=== PATIENT | female | born 2000 | race Caucasian/White ===

== ENCOUNTER 2021-04-23 09:53 | Outpatient (CLI) | payer OTHER, SELFPAY ==
[2021-04-23 12:32] LABS: T3 Total - Triiodothyronine 1.51 ng/mL (0.6-1.81)
[2021-04-23 12:49] LABS: Free T3 2.7 pg/mL (2.18-3.98); T4 Total, Thyroxin 15.6 ug/dL (4.8-13.9)
[2021-04-28 13:34] LABS: Anti-Thyroglobulin AB < 1.0 IU/mL (0.0-0.9); Thyroglobulin, Serum Qt. 8.8 ng/mL (1.5-38.5); Thyroid Peroxidase AB < 8 IU/mL (0-34)
== END 2021-04-23 23:59 | disposition short-term general hospital (02) ==
LOC: MTLAB 09:58
PROVIDERS: PCP Family Medicine; Referring Provider Family Medicine; Visit Provider Family Medicine
DX: E03.9 Hypothyroidism, unspecified (principal)
CPT/HCPCS: 36415; 84432; 84436; 84480; 84481; 86376; 86800

== ENCOUNTER → 2021-07-23 | Outpatient (CLI) | payer OTHER, SELFPAY ==
[2021-07-23 10:14] LABS: Hematocrit 40.9 % (37-47); Hemoglobin 13.4 g/dL (12.0-15.0); Mean Corp Hgb Conc 32.8 g/dL (32-36); Mean Corpuscular Hgb 27.4 pg (27.0-32.0); Mean Corpuscular Volume 83.6 fL (81-99); Mean Platelet Vol. 10.8 fl (6.2-12.0); Platelet Count 250 K/mm3 (150-450); RBC Distribution Width CV 12.1 % (11.6-14.6); RBC Distribution Width SD 37.1 fl (35.1-43.9); Red Blood Count 4.89 M/mm3 (4.2-5.4); White Blood Count 6.8 K/mm3 (4.4-11.0)
[2021-07-23 10:39] LABS: Vitamin B12 380 pg/mL (211-911)
[2021-07-23 10:52] LABS: ALB/GLOB Ratio 0.9 RATIO (0.9-2.4); AST(SGOT) 13 U/L (15-37); Alanine Aminotransfer ALT/SGPT 18 U/L (13-56); Albumin, Serum 3.7 g/dL (3.2-5.0); Alkaline Phosphatase 42 U/L (45-117); Anion Gap 9 (5-15); BUN 13 mg/dL (7-18); Calcium,Total 8.9 mg/dL (8.5-10.1); Chloride 103 mmol/L (98-107); Creatinine, Serum 0.81 mg/dL (0.55-1.02); EST Glomerular Filtration Rate 94 mL/min (>60); Est Glom Filt Rate - Afr Amer 114 mL/min (>60); Globulin 4.1 g/dL (2.2-4.2); Glucose 84 mg/dL (74-106); Potassium 3.8 mmol/L (3.5-5.1); Protein, Total 7.8 g/dL (6.4-8.2); Sodium Level 134 mmol/L (136-145); T4 Free Direct 0.83 ng/dL (0.76-1.46); Thyroid Stim Hormone (TSH) 6.33 uIU/mL (0.358-3.74)
[2021-07-24 17:19] LABS: ANTINUCLEAR ANTIBODIES DIRECT Negative (Negative)
[2021-07-31 16:05] LABS: Vitamin B1, Thiamine 133.5 nmol/L (66.5-200.0)
== END | disposition home or self-care (01) ==
PROVIDERS: Psychiatry & Neurology Neurology; PCP Family Medicine; Referring Provider Family Medicine; Visit Provider Family Medicine
DX: E03.9 Hypothyroidism, unspecified (principal); G47.10 Hypersomnia, unspecified; F95.2 Tourette's disorder; F44.5 Conversion disorder with seizures or convulsions
CPT/HCPCS: 80053; 82607; 82746; 84425; 84439; 84443; 85027; 86038; 86225; 86235

== ENCOUNTER → 2021-07-25 | Outpatient (CLI) | payer OTHER, SELFPAY ==
[2021-07-25 08:03] LABS: Glucose GTT- Fasting 89 mg/dL (74-106)
[2021-07-25 08:56] LABS: Glucose GTT- 1 Hour 74 mg/dL (120-170)
[2021-07-25 09:02] LABS: Glucose GTT-30 minutes 83 mg/dL (110-170)
[2021-07-25 09:45] LABS: Glucose GTT- 2 Hour 82 mg/dL (70-120)
[2021-07-25 11:11] LABS: Glucose GTT- 3 Hour 86 mg/dL (74-106)
== END | disposition home or self-care (01) ==
LOC: LAB 07:06
PROVIDERS: PCP Family Medicine; Referring Provider Psychiatry & Neurology Neurology; Visit Provider Psychiatry & Neurology Neurology
DX: G47.10 Hypersomnia, unspecified (principal); F95.2 Tourette's disorder; F44.5 Conversion disorder with seizures or convulsions
CPT/HCPCS: 36415; 82951; 82952

== ENCOUNTER → 2021-08-07 | Outpatient (CLI) | payer OTHER, SELFPAY ==
--- NOTE | 2021-08-07 10:19 | TELEMED_ITS ---
[facility] has confirmed receipt of a request for visit. This document confirms receipt of the order initiating the consult. To find the results of the consultation, please view the patient's reports for the scanned Telemed Consult.
== END | disposition home or self-care (01) ==
LOC: PSN 08:39
PROVIDERS: PCP Family Medicine; Visit Provider Psychiatry & Neurology Neurology
DX: G47.10 Hypersomnia, unspecified (principal); R41.840 Attention and concentration deficit; F95.2 Tourette's disorder
CPT/HCPCS: 95819

== ENCOUNTER → 2021-08-20 | Outpatient (CLI) | payer OTHER, BC, SELFPAY | END | disposition home or self-care (01) | LOC: SL 20:15 | PROVIDERS: PCP Family Medicine; Referring Provider Psychiatry & Neurology Neurology; Visit Provider Psychiatry & Neurology Neurology | DX: G47.10 Hypersomnia, unspecified (principal) | CPT/HCPCS: 95810 ==

== ENCOUNTER → 2021-08-21 | Outpatient (CLI) | payer OTHER, BC, SELFPAY ==
[2021-08-21 10:41] LABS: Amphetamine Urine VISTA NEGATIVE (<1000 ng/mL); Barbiturate Urine VISTA NEGATIVE (< 200 ng/mL); Benzodiazepine Urine VISTA NEGATIVE (< 200 ng/mL); Cocaine Urine VISTA NEGATIVE (< 300 ng/mL); Ecstacy Urine VISTA NEGATIVE (< 500 ng/mL); Methadone Urine VISTA NEGATIVE (< 300 ng/mL); PCP Urine VISTA NEGATIVE (< 25 ng/mL); THC Urine VISTA NEGATIVE (< 50 ng/mL); Vista UDS pH Range 5
== END | disposition home or self-care (01) ==
PROVIDERS: PCP Family Medicine; Referring Provider Psychiatry & Neurology Neurology; Visit Provider Psychiatry & Neurology Neurology
DX: F95.2 Tourette's disorder (principal); R41.840 Attention and concentration deficit; G47.10 Hypersomnia, unspecified
CPT/HCPCS: 80307; 95805

== ENCOUNTER → 2022-01-01 | Outpatient (CLI) | payer BC, SELFPAY ==
[2022-01-01 21:04] LABS: T4 Free Direct 0.89 ng/dL (0.76-1.46); Thyroid Stim Hormone (TSH) 0.65 uIU/mL (0.358-3.74)
== END | disposition home or self-care (01) ==
LOC: BFHLAB 15:33
PROVIDERS: PCP Family Medicine; Visit Provider Family Medicine
DX: E03.9 Hypothyroidism, unspecified (principal)
CPT/HCPCS: 36415; 84439; 84443

== ENCOUNTER → 2022-05-06 | Outpatient (CLI) | payer BC, SELFPAY | END | disposition home or self-care (01) | LOC: BFHLAB 12:00 | PROVIDERS: PCP Family Medicine; Visit Provider Family Medicine | DX: I95.9 Hypotension, unspecified (principal) | CPT/HCPCS: 36415; 82533 ==

== ENCOUNTER 2022-06-07 21:53 | Emergency (ER) | payer BC, SELFPAY ==
[2022-06-07 21:55] VITALS: BP 125/79; PULSE 169; RESP 32; TEMP 36.4; O2SAT 99; BMI 21.9
[2022-06-07] MEDS: LORazepam 2 MG/ML Syringe 1 MG IV (22:03)
--- NOTE | 2022-06-07 22:05 | EX.ED.DYSGE1 ---
HPI History of Present Illness Chief Complaint: Seizure Detail of Chief Complaint: Pseudoseizure activity. Informant: patient Onset/Context/Timing Onset: Today Current Severity: Mild Maximum Severity: Mild Narrative Narrative: 21-year-old female history of hypothyroidism and Tourette's. History of pseudoseizures. Reportedly has had 3 negative EEGs. Brought in the night accompanied by her says she started having this seizure-like activity. Patient is awake and talking and answering questions but shaking her arms and legs. Prior similar symptoms: Yes Recent Illness/Hospitalization: No PFSH PFSH Medical History Anxiety GERD (gastroesophageal reflux disease) Hypoglycemia Hypothyroidism Migraines Seizures Thyroid disease Tourette's Vision problem Home Medications levothyroxine 175 mcg tablet 175 mcg PO DAILY 06/07/22 [History Last Taken Unknown] liothyronine 50 mcg tablet 50 mcg PO DAILY 06/07/22 [History Last Taken Unknown] Allergy/AdvReac Type Severity Reaction Status Date / Time pimozide [From [facility]] Allergy Severe OTHR Verified 06/07/22 21:55 Family History Brother Bowel disease Grandmother Diabetes Hypertension Bowel disease Grandfather Hypertension Mother Asthma Other Arthritis Thyroid disorder Uterine cancer Surgical History No history of previous surgery Social History Smoking Status: Never smoker alcohol intake: current details: 1x a week substance use type: does not use frequency: 3-4 times per week ROS ROS ED ROS Narrative Denies recent illness. Review of Systems ROS Unobtainable: Denies due to encephalopathy Constitutional Constitutional ED: Denies fever(s) Eyes Eyes: Denies blurry vision ENT ENT ED: Denies ear pain Cardiovascular Cardiovascular: Denies chest pain Respiratory/Chest Respiratory/Chest: Denies cough or dyspnea Genitourinary Genitourinary ED: Denies dysuria Musculoskeletal Musculoskeletal: Denies arthralgias Integumentary Denies abscess Neurologic Neurologic: Denies headache(s) Psychiatric Psychiatric: Denies anxiety Endocrine Endocrinology: Denies cold intolerance Hematologic/Lymphatic Hematologic/Lymphatic: Reports none Allergic/Immunologic Allergic/Immunologic ED: Denies mouth swelling or tongue swelling EXAM Physical Exam Narrative Exam Narrative: 21-year-old female vital signs are stable the pulse rates is 169 its not 169 she is shaking and there is a lot of artifact on the monitor. It is closer to 110. She has a normal pressure 125/79 and a pulse ox of 99% on room air. No hypoxia. H EENT exam unremarkable atraumatic. Neck nontender no lymphadenopathy. Lungs clear to auscultation bilaterally. Heart tachycardic rate about 110 no murmur. Abdomen soft nontender. Moving all 4 extremities. Neurologically she is awake. She answers questions. Pain she has pseudoseizure activity. But will respond to commands and answer questions. Const Vital Signs: 06/07/22 21:55 06/08/22 05:38 Temperature 97.5 F L Temperature Source Temporal Pulse Rate 169 H Respiratory Rate 32 H 16 Blood Pressure 125/79 H Blood Pressure Mean 94 Pulse Ox 99 Oxygen Delivery Method Room Air Room Air Positive well nourished and well developed; Negative for obese, cachectic, contractures or unkempt General Appearance ED: well developed and NAD; Negative for unkempt, cachectic, contractures, cyanotic, diaphoretic or pallor Nutritional Appearance: Negative for cachectic or obese HEENT Reports moist mucous membranes Negative for trauma Eyes PERRL and EOMs intact bilaterally General Eye ED: Negative for pale conjunctiva or scleral icterus Neck no lymphadenopathy, No supple and No no JVD General: Negative for tenderness Lymph Lymphatic: Negative for other Chest Wall inspection of chest normal and palpation of chest normal Chest: Negative for other Resp normal respiratory effort and clear to auscultation bilaterally Effort and Inspection: Negative for retractions Auscultation: Negative for rales, rhonchi or wheezes Cardio regular rhythm, S1 normal heart sound, S2 normal heart sound and no murmurs; Negative for regular rate Rate: tachycardic GI normal to inspection, nondistended, normoactive bowel sounds, non-tender, non-distended and no masses Auscultation: normoactive bowel sounds Palpation: soft; Negative for tender or guarding Back/Spine no CVA tenderness General Back: Negative for CVA tenderness Cervical Spine: Negative for cervical spine tenderness Thoracic Spine / Upper Back: Negative for thoracic spinal tenderness Lumbar Spine / Lower Back: Negative for lumbar spinal tenderness Extremity normal to inspection General Extremety ED: Negative for edema or tenderness General Extremity: Negative for edema Neuro Neuro Narrative: Patient with pseudoseizure activity. But when you ask her questions she will open her eyes and answer. Sensorium / Orientation: alert Motor Exam: strength 5/5 throughout Psych Appearance: Negative for unkempt Attitude: No agitated Mood & Affect: anxious; Negative for depressed or tearful Skin no rashes or lesions noted and no wounds General Skin Exam: Negative for jaundice or pallor Lesions: No lesion noted Rashes: No rashes noted Wounds: Negative for wounds noted MDM MDM MDM Narrative Medical decision making narrative: 21-year-old female with pseudoseizure activity. Has a history of Tourette's, hypothyroidism and anxiety. She will be given a dose of Ativan. She is on a registered nurse cardiac telemetry. CBC and chemistry will be obtained. Clinically I think this is more anxiety and mental health related and I think it is a neurologic condition. Multiple repeat exams patient is resting comfortably after the Ativan. I have seen no true seizure activity. Patient's been observed for more than 7 and half hours. I discussed her test results with her and significant other. She will be discharged home with outpatient follow-up. Per her she has seen 6 different neurologists including the [facility], in [facility] among others. None of found any specific causes of her problem. Nothing that they have done is particularly made a difference. She has had extensive imaging. I explained to him at there was nothing [place] at the night by admitting her to the hospital. She has a neurologist appointment later today. Lab Data Attestation: I reviewed the patient's lab results. Lab results narrative: CBC unremarkable. White count 8.8. H&H 13.7 and 43. Platelets 283. Electrolytes unremarkable. Gap at 9. Normal BUN and creatinine. Glucose 99. Labs: Laboratory Results - last 24 hr 06/07/22 06/07/22 21:53 21:53 WBC 8.8 RBC 5.14 Hgb 13.7 Hct 43.9 MCV 85.4 MCH 26.7 L MCHC 31.2 L RDW Std Deviation 37.8 RDW Coeff of [place] 12.1 Plt Count 283 MPV 10.7 Immature Gran % (Auto) 0.100 Neut % (Auto) 33.1 L Lymph % (Auto) 49.8 H [place] % (Auto) 14.7 H Eos % (Auto) 1.7 Baso % (Auto) 0.6 Absolute Neuts (auto) 2.9 Absolute Lymphs (auto) 4.38 Nucleated RBC % 0 Sodium 143 Potassium 4.0 Chloride 109 H Carbon Dioxide 25.0 Anion Gap 9 BUN 13 Creatinine 0.71 Estim Creat Clear Calc 99.13 Est GFR (MDRD) Af Amer 133 Est GFR (MDRD) Non-Af 110 BUN/Creatinine Ratio 18.3 Glucose 99 Calcium 9.5 Discharge Plan Triage Chief Complaint: Seizure Other Complaint: Anxiety ED Provider: Wolf Cast Dx/Rx/DC Orders Clinical Impression: Anxiety, Psychogenic nonepileptic seizure Prescriptions: No Action levothyroxine 175 mcg tablet 175 mcg PO DAILY Label Comments: TAKE 1 TABLET BY MOUTH EVERY DAY liothyronine 50 mcg tablet 50 mcg PO DAILY Label Comments: TAKE 1 TABLET BY MOUTH EVERY DAY ON AN EMPTY STOMACH Primary Care Provider: Glen Brand Referrals: Glen Brand DO [Primary Care Provider] - 3-5 Days Activity Restrictions/Additional Instructions: The issues she is having a night are secondary to anxiety. They are not true neurological seizures. Her lab work was all unremarkable. Follow-up with her primary care doctor. Disposition Disposition: Home, Self Care
[2022-06-07 22:11] LABS: Absolute Lymphocyte Count 4.38 X10^3/uL (0.83-4.51); Absolute Neutrophil Count 2.9 X10^3/uL (2.0-7.7); Basophil# 0.05 X10^3/uL; Basophil% 0.6 % (0-1); Eosinophil# 0.15 X10^3/uL; Eosinophils% 1.7 % (0-5); Hematocrit 43.9 % (37-47); Hemoglobin 13.7 g/dL (12.0-15.0); Lymphocyte # 4.38 X10^3/ul (0.83-4.51); Lymphocyte % 49.8 % (19-41); Mean Corp Hgb Conc 31.2 g/dL (32-36); Mean Corpuscular Hgb 26.7 pg (27.0-32.0); Mean Corpuscular Volume 85.4 fL (81-99); Mean Platelet Vol. 10.7 fl (6.2-12.0); Monocyte# 1.29 X10^3/uL; Monocyte% 14.7 % (0-10); NRBC Flagged by Analyzer 0 % (0-5); Neutrophil # 2.92 X10^3/uL (2.7-7.7); Neutrophil % 33.1 % (47-70); Platelet Count 283 K/mm3 (150-450); RBC Distribution Width CV 12.1 % (11.6-14.6); RBC Distribution Width SD 37.8 fl (35.1-43.9); Red Blood Count 5.14 M/mm3 (4.2-5.4); White Blood Count 8.8 K/mm3 (4.4-11.0)
[2022-06-07 22:24] LABS: Anion Gap 9 (5-15); BUN 13 mg/dL (7-18); BUN/Creat Ratio 18.3 RATIO (10-20); Calcium,Total 9.5 mg/dL (8.5-10.1); Chloride 109 mmol/L (98-107); Creatinine, Serum 0.71 mg/dL (0.55-1.02); EST Glomerular Filtration Rate 110 mL/min (>60); Est Glom Filt Rate - Afr Amer 133 mL/min (>60); Estimated Creatinine Clearance 99.13 ml/min; Glucose 99 mg/dL (74-106); Sodium Level 143 mmol/L (136-145)
[2022-06-08 05:38] VITALS: RESP 16
== END 2022-06-08 06:00 | disposition home or self-care (01) ==
PROVIDERS: Emergency Provider Emergency Medicine; PCP Family Medicine; Visit Provider Emergency Medicine
DX: F41.9 Anxiety disorder, unspecified (principal); R56.9 Unspecified convulsions; E03.9 Hypothyroidism, unspecified; F95.2 Tourette's disorder; Z79.890 Hormone replacement therapy; Z79.899 Other long term (current) drug therapy
CPT/HCPCS: 80048; 85025; 96374; 99283; A4216

== ENCOUNTER → 2023-07-19 | Outpatient (CLI) | payer BC, SELFPAY ==
[2023-07-19 10:22] LABS: Free T3 7.1 pg/mL (2.18-3.98); T4 Free Direct 1.49 ng/dL (0.76-1.46); Thyroid Stim Hormone (TSH) 0.02 uIU/mL (0.358-3.74)
== END | disposition home or self-care (01) ==
LOC: BFHLAB 08:58
PROVIDERS: PCP Family Medicine; Referring Provider Family Medicine; Visit Provider Family Medicine
DX: E03.9 Hypothyroidism, unspecified (principal)
CPT/HCPCS: 36415; 84439; 84443; 84481